=== PATIENT | female | born 1995 ===

== ENCOUNTER 2019-02-23 07:03 | Inpatient (IN) ==
[2019-02-23] MEDS ORDERED: ONDANSETRON 4 MG/2 ML VIAL IV PRN ×3 (07:18→12:16)
[2019-02-23] MEDS ORDERED: LACTATED RINGERS 1,000 ML IV ONE (07:18)
[2019-02-23] MEDS ORDERED: ePHEDrine 50 MG/ML AMP IV PRN (07:23)
[2019-02-23] MEDS ORDERED: hydrOXYzine HCL 25 MG/1 ML VIAL IM PRN ×2 (07:23→12:16)
[2019-02-23] MEDS ORDERED: CITRIC ACID/SODIUM CITRATE 30 ML UDCUP PO ONE (07:23)
[2019-02-23] MEDS ORDERED: FAMOTIDINE 20 MG/2 ML VIAL IV ONE (07:23)
[2019-02-23] MEDS ORDERED: PROMETHAZINE 25 MG/1 ML VIAL IM ONE ×2 (07:23→14:25)
[2019-02-23] MEDS ORDERED: diphenhydrAMINE 50 MG/1 ML VIAL IV PRN ×3 (07:23→12:16)
[2019-02-23] MEDS ORDERED: OXYTOCIN 10 UNIT/ML VIAL IM ONE (07:24)
[2019-02-23] MEDS ORDERED: OXYTOCIN/LR 30 UNIT/1,000 ML BAG IV ONE (07:25)
[2019-02-23] MEDS ORDERED: ceFAZolin 3,000 MG in SYRINGE 1 EACH IV ONE (07:27)
[2019-02-23] MEDS ORDERED: LACTATED RINGERS 1,000 ML IV SCH ×2 (07:30→11:30)
[2019-02-23 07:49] LABS: Basophils % 0.3 % (0.0-0.8); Eosinophils # 0.2 10*3/uL (0.0-0.87); Eosinophils % 2.1 % (0.00-10.9); Hematocrit 33.4 VOL% (35.7-47.0); Immature Granulocytes % 0.5 %; Immature Granulocytes Absolute 0.05 #; Lymphocytes # 1.9 10*3/uL (1.4-4.0); Mean Corpuscular HGB Conc 32.9 GM/DL (32-36); Mean Corpuscular Volume 88.1 FL (87-102); Mean Platelet Volume 11.2 FL (9.6-12.0); Monocytes % 8.2 % (1.7-12.7); Neutrophils % 67.9 % (38.7-73.9); Platelet Count 243 T/CUMM (130-400); Red Blood Count 3.79 MC/CUMM (3.8-5.5); Red Cell Distribution Width 13.3 % (9.3-17.3); White Blood Count 9.1 T/CUMM (4-12)
[2019-02-23 08:39] LABS: Alanine Aminotransferase 13 U/L (13-56); Albumin 2.8 G/DL (3.4-5.0); Alkaline Phosphatase 225 U/L (45-117); Aspartate Amino Transferase 14 U/L (0-37); Bilirubin,Total < 0.39 MG/DL (0.2-1.0); Blood Urea Nitrogen 9 MG/DL (7-18); Calcium 8.7 MG/DL (8.5-10.1); Glucose 74 MG/DL (74-106); Osmolality,Calculated 274.5 MOS/KG (273-304); Total Protein 7.6 G/DL (6.4-8.3); Uric Acid 4.9 MG/DL (2.6-6.0)
[2019-02-23] MEDS ORDERED: MORPHINE 10 MG/10 ML VIAL ONE (10:03)
[2019-02-23] MEDS ORDERED: BUPIVACAINE SPINAL 0.75% 2 ML AMP SPINAL ONE (10:03)
[2019-02-23] MEDS ORDERED: PHENYLEPHRINE 1 MG/10 ML SYRINGE IV ONE (10:03)
[2019-02-23 11:07] LABS: Cord Arterial Blood HCO3 19.6 MMOL/L
[2019-02-23 11:10] LABS: Cord Venous Blood HCO3 20.7 MMOL/L; Cord Venous Blood PCO2 47.9 MMHG
[2019-02-23 11:13] LABS: Apearance,Urine CLEAR (Clear); Bilirubin,Urine Negative (Negative); Blood, Urine Small mg/dL (Negative); Glucose,Urine (UA) Negative (Negative); Ketones,Urine Negative (Negative); Mucus,Urine Occasional /LPF (Occasional); Nitrite,Urine Negative (Negative); Protein,Urine Negative; RBC,Urine 1 /HPF (0-4); Squamous Epithelial Cell,Urine Occasional /HPF (0-10); Urine Color Yellow (Yellow); Urine Urobilinogen < 2.0 EU/DL (0.2-1.0); WBC,Urine 1 /HPF (0-6)
[2019-02-23] MEDS ORDERED: SIMETHICONE CHEW 80 MG TABLET PO PRN (11:17)
[2019-02-23] MEDS ORDERED: ACETAMINOPHEN 325 MG TABLET PO PRN (11:17)
[2019-02-23] MEDS ORDERED: OXYTOCIN/LR 20 UNIT/1,000 ML BAG IV ONE (11:17)
[2019-02-23] MEDS ORDERED: RHO(D) IMMUNE GLOBULIN 300 MCG SYRINGE IM ONE (11:17)
[2019-02-23] MEDS ORDERED: fentaNYL 100 MCG/2 ML VIAL ONE (11:48)
[2019-02-23] MEDS ORDERED: ePHEDrine 50 MG/ML AMP ONE (11:48)
[2019-02-23] MEDS ORDERED: HYDROmorphone 2 MG/1 ML VIAL IV PRN (12:16)
[2019-02-23 14:03] LABS: Hematocrit 28.3 VOL% (35.7-47.0); Hemoglobin 9.1 GM/DL (12.0-16.0)
[2019-02-23] MEDS: ceFAZolin 1,000 MG in SYRINGE 1 EACH IV SCH (18:45)
[2019-02-23 19:03] LABS: Basophils % 0.1 % (0.0-0.8); Eosinophils % 0.1 % (0.00-10.9); Hemoglobin 7.9 GM/DL (12.0-16.0); Immature Granulocytes % 0.5 %; Immature Granulocytes Absolute 0.06 #; Lymphocytes # 0.6 10*3/uL (1.4-4.0); Lymphocytes % 5.2 % (21.3-54.2); Mean Corpuscular HGB Conc 32.9 GM/DL (32-36); Mean Corpuscular Volume 89.2 FL (87-102); Mean Platelet Volume 10.9 FL (9.6-12.0); Monocytes % 4.2 % (1.7-12.7); Neutrophils % 89.9 % (38.7-73.9); Platelet Count 195 T/CUMM (130-400); Red Blood Count 2.69 MC/CUMM (3.8-5.5); Red Cell Distribution Width 13.4 % (9.3-17.3); White Blood Count 12.2 T/CUMM (4-12)
[2019-02-23] MEDS: DOCUSATE SODIUM 100 MG CAPSULE PO SCH (20:42)
[2019-02-24] MEDS: ceFAZolin 1,000 MG in SYRINGE 1 EACH IV SCH (03:48)
[2019-02-24 05:54] LABS: Basophils % 0.2 % (0.0-0.8); Eosinophils % 0.4 % (0.00-10.9); Hematocrit 23.3 VOL% (35.7-47.0); Hemoglobin 7.5 GM/DL (12.0-16.0); Immature Granulocytes % 0.5 %; Immature Granulocytes Absolute 0.05 #; Lymphocytes # 1.6 10*3/uL (1.4-4.0); Lymphocytes % 17.4 % (21.3-54.2); Mean Corpuscular HGB Conc 32.2 GM/DL (32-36); Mean Corpuscular Volume 90.3 FL (87-102); Mean Platelet Volume 11.2 FL (9.6-12.0); Monocytes % 10.7 % (1.7-12.7); Neutrophils % 70.8 % (38.7-73.9); Platelet Count 181 T/CUMM (130-400); Red Blood Count 2.58 MC/CUMM (3.8-5.5); Red Cell Distribution Width 13.5 % (9.3-17.3); White Blood Count 9.3 T/CUMM (4-12)
[2019-02-24] MEDS: METOCLOPRAMIDE 10 MG TABLET PO SCH ×3 (07:45→23:36)
[2019-02-24] MEDS: FERROUS SULFATE 325 MG TABLET PO SCH ×3 (10:15→20:44)
[2019-02-24] MEDS: MULTIVITAMIN (PRENATAL) TABLET PO SCH (10:15)
[2019-02-24] MEDS: DOCUSATE SODIUM 100 MG CAPSULE PO SCH ×2 (10:15→20:45)
[2019-02-24] MEDS: IBUPROFEN 800 MG TABLET PO PRN (12:18)
[2019-02-24] MEDS: MAGNESIUM HYDROXIDE SUSP 30 ML UDCUP PO PRN (20:45)
[2019-02-25] MEDS: IBUPROFEN 800 MG TABLET PO PRN (03:16)
[2019-02-25 04:28] LABS: Hematocrit 20.4 VOL% (35.7-47.0); Hemoglobin 6.7 GM/DL (12.0-16.0)
[2019-02-25] MEDS ORDERED: SODIUM CHLORIDE 0.9% 1,000 ML IV PRN (08:01)
[2019-02-25] MEDS: METOCLOPRAMIDE 10 MG TABLET PO SCH (08:07)
[2019-02-25] MEDS: MAGNESIUM HYDROXIDE SUSP 30 ML UDCUP PO PRN (08:07)
[2019-02-25] MEDS: DOCUSATE SODIUM 100 MG CAPSULE PO SCH (08:08)
[2019-02-25] MEDS: MULTIVITAMIN (PRENATAL) TABLET PO SCH (08:08)
[2019-02-25] MEDS: FERROUS SULFATE 325 MG TABLET PO SCH (08:08)
[2019-02-25 16:36] LABS: Hemoglobin 9.5 GM/DL (12.0-16.0)
[2019-02-25 16:46] VITALS: BP 125/79
== END 2019-02-25 18:05 | disposition home or self-care (01) | DRG 787 ==
LOC: N.LD 07:03 → N.OB 15:08
PROVIDERS: ADMIT Obstetrics & Gynecology; ATTEND Obstetrics & Gynecology
PROC: LDCSECT (ICD-10-PCS; 2019-02-23 09:30)

== ENCOUNTER 2022-09-26 10:03 | Inpatient (IN) ==
[2022-09-26] MEDS ORDERED: OXYTOCIN/LR 30 UNIT/1,000 ML BAG IV ONE (10:10)
[2022-09-26] MEDS ORDERED: OXYTOCIN/LR 20 UNIT/1,000 ML BAG IV ONE ×2 (10:10→15:52)
[2022-09-26] MEDS ORDERED: CARBOPROST TROMETHAMINE 250 MCG/ML AMP IM PRN (10:10)
[2022-09-26] MEDS ORDERED: OXYTOCIN 10 UNIT/ML VIAL IM ONE (10:10)
[2022-09-26] MEDS ORDERED: FAMOTIDINE 20 MG/2 ML VIAL IV ONE (10:10)
[2022-09-26] MEDS ORDERED: ceFAZolin 3,000 MG in SYRINGE 1 EACH IV ONE (10:10)
[2022-09-26] MEDS ORDERED: CITRIC ACID/SODIUM CITRATE 30 ML UDCUP PO ONE (10:10)
[2022-09-26] MEDS ORDERED: METHYLERGONOVINE 0.2 MG/1 ML AMP IM PRN (10:10)
[2022-09-26] MEDS ORDERED: TRANEXAMIC ACID 1,000 MG in SODIUM CHLORIDE 0.9% 100 ML IV PRN (10:10)
[2022-09-26] MEDS ORDERED: miSOPROStoL 200 MCG TABLET RECTAL PRN (10:10)
[2022-09-26 10:31] LABS: Basophils # 0.1 10*3/uL (0.0-0.2); Basophils % 0.7 % (0.0-0.8); Eosinophils # 0.3 10*3/uL (0.0-0.87); Eosinophils % 3.8 % (0.00-10.9); Hematocrit 34.2 VOL% (35.7-47.0); Hemoglobin 11.2 GM/DL (12.0-16.0); Immature Granulocytes % 0.7 %; Immature Granulocytes Absolute 0.05 #; Lymphocytes % 28.5 % (21.3-54.2); Mean Corpuscular HGB Conc 32.7 GM/DL (32-36); Mean Corpuscular Volume 88.8 FL (87-102); Mean Platelet Volume 11.1 FL (9.6-12.0); Monocytes # 0.6 10*3/uL (0.11-0.8); Monocytes % 7.9 % (1.7-12.7); Neutrophils % 58.4 % (38.7-73.9); Platelet Count 248 T/CUMM (130-400); Red Blood Count 3.85 MC/CUMM (3.8-5.5); Red Cell Distribution Width 12.9 % (9.3-17.3); White Blood Count 7.1 T/CUMM (4-12)
[2022-09-26] MEDS: LACTATED RINGERS 1,000 ML IV SCH ×2 (10:35→12:11)
[2022-09-26 10:48] LABS: Alanine Aminotransferase 12 U/L (13-56); Albumin 2.8 G/DL (3.4-5.0); Alkaline Phosphatase 184 U/L (45-117); Aspartate Amino Transferase 10 U/L (0-37); Bilirubin,Total < 0.39 MG/DL (0.20-1.00); Blood Urea Nitrogen 9 MG/DL (7-18); Calcium 8.7 MG/DL (8.5-10.1); Carbon Dioxide 21 MMOL/L (21-32); Chloride 108 MMOL/L (98-107); Glucose 78 MG/DL (74-106); Osmolality,Calculated 272.7 MOS/KG (273-304); Sodium 138 MMOL/L (136-145); Total Protein 7.8 G/DL (6.4-8.2)
[2022-09-26] MEDS ORDERED: buprenorphine HCL 0.3 MG/ML VIAL ONE (13:41)
[2022-09-26] MEDS ORDERED: ONDANSETRON 4 MG/2 ML VIAL ONE ×2 (13:41→14:23)
[2022-09-26] MEDS ORDERED: BUPIVACAINE SPINAL 0.75% 2 ML AMP SPINAL ONE (13:42)
[2022-09-26] MEDS ORDERED: KETOROLAC 30 MG/1 ML VIAL ONE (14:23)
[2022-09-26] MEDS ORDERED: ACETAMINOPHEN INJ 1,000 MG/100 ML VIAL IV ONE (14:23)
[2022-09-26] MEDS ORDERED: PHENYLEPHRINE 1 MG/10 ML SYRINGE IV ONE (14:53)
[2022-09-26 14:57] LABS: Cord Arterial Blood HCO3 20.3 MMOL/L
[2022-09-26 15:00] LABS: Cord Venous Blood HCO3 21.5 MMOL/L; Cord Venous Blood PCO2 50.6 MMHG; Cord Venous Blood PO2 24.8
[2022-09-26 15:03] LABS: RBC,Urine 1 /HPF (0-4); Squamous Epithelial Cell,Urine Occasional /HPF (0-10)
[2022-09-26 15:04] LABS: Bilirubin,Urine Negative (Negative); Blood, Urine Trace mg/dL (Negative); Glucose,Urine (UA) Negative (Negative); Ketones,Urine Negative (Negative); Nitrite,Urine Negative (Negative); Protein,Urine Negative (Negative); Urine Appearance Clear (Clear); Urine Color Yellow (Yellow); Urine Urobilinogen 0.2 eU/dL (<2.0)
[2022-09-26] MEDS ORDERED: GLYCOPYRROLATE 0.4 MG/2 ML VIAL ONE (15:08)
[2022-09-26] MEDS ORDERED: RHO(D) IMMUNE GLOBULIN 300 MCG SYRINGE IM ONE (15:52)
[2022-09-26] MEDS ORDERED: IBUPROFEN 800 MG TABLET PO PRN (15:52)
[2022-09-26] MEDS ORDERED: ACETAMINOPHEN 325 MG TABLET PO PRN (15:52)
[2022-09-26] MEDS ORDERED: ONDANSETRON 4 MG/2 ML VIAL IV PRN (15:52)
[2022-09-26] MEDS ORDERED: LACTATED RINGERS 1,000 ML IV SCH (16:00)
[2022-09-26 16:16] LABS: Barbiturates Screen,Urine Negative (Negative); Benzodiazepines Screen,Urine Negative (Negative); Cannabinoid Screen,Urine Negative (Negative); Opiate Screen,Urine Negative (Negative); Phencyclidine Screen,Urine Negative (Negative)
[2022-09-26] MEDS ORDERED: SODIUM CHLORIDE 0.9% 1,000 ML IV PRN ×2 (19:34→19:40)
[2022-09-26 19:47] LABS: Hematocrit 25.4 VOL% (35.7-47.0); Hemoglobin 8.2 GM/DL (12.0-16.0)
[2022-09-26] MEDS: KETOROLAC 30 MG/1 ML VIAL IV SCH (21:26)
[2022-09-26] MEDS: DOCUSATE SODIUM 100 MG CAPSULE PO SCH (21:30)
[2022-09-26] MEDS: ACETAMINOPHEN 500 MG TABLET PO SCH (21:30)
[2022-09-27] MEDS: KETOROLAC 30 MG/1 ML VIAL IV SCH ×2 (03:37→08:06)
[2022-09-27] MEDS: ACETAMINOPHEN 500 MG TABLET PO SCH (03:41)
[2022-09-27 04:54] LABS: Basophils % 0.2 % (0.0-0.8); Eosinophils % 0.1 % (0.00-10.9); Hematocrit 31.8 VOL% (35.7-47.0); Hemoglobin 10.6 GM/DL (12.0-16.0); Immature Granulocytes % 0.5 %; Immature Granulocytes Absolute 0.06 #; Lymphocytes # 1.5 10*3/uL (1.4-4.0); Mean Corpuscular HGB Conc 33.3 GM/DL (32-36); Mean Corpuscular Volume 88.1 FL (87-102); Monocytes # 1.2 10*3/uL (0.11-0.8); Monocytes % 8.9 % (1.7-12.7); Neutrophils % 79.3 % (38.7-73.9); Platelet Count 202 T/CUMM (130-400); Red Blood Count 3.61 MC/CUMM (3.8-5.5); Red Cell Distribution Width 14.2 % (9.3-17.3); White Blood Count 13.3 T/CUMM (4-12)
[2022-09-27] MEDS ORDERED: METOCLOPRAMIDE 10 MG TABLET PO PRN (08:00)
[2022-09-27] MEDS: MAGNESIUM HYDROXIDE SUSP 30 ML UDCUP PO PRN ×2 (08:04→22:33)
[2022-09-27] MEDS: METOCLOPRAMIDE 10 MG TABLET PO SCH ×2 (08:04→16:56)
[2022-09-27] MEDS: MULTIVITAMIN (PRENATAL) TABLET PO SCH (08:04)
[2022-09-27] MEDS: SIMETHICONE CHEW 80 MG TABLET PO PRN ×2 (08:04→16:56)
[2022-09-27] MEDS: DOCUSATE SODIUM 100 MG CAPSULE PO SCH ×2 (08:05→22:33)
[2022-09-27] MEDS ORDERED: BISACODYL 10 MG SUPP RECTAL PRN (17:06)
[2022-09-28] MEDS: METOCLOPRAMIDE 10 MG TABLET PO SCH ×2 (01:06→08:07)
[2022-09-28] MEDS: MAGNESIUM HYDROXIDE SUSP 30 ML UDCUP PO PRN (08:06)
[2022-09-28] MEDS: MULTIVITAMIN (PRENATAL) TABLET PO SCH (08:06)
[2022-09-28] MEDS: SIMETHICONE CHEW 80 MG TABLET PO PRN (08:07)
[2022-09-28 08:37] VITALS: BP 121/73
[2022-09-28] MEDS: DOCUSATE SODIUM 100 MG CAPSULE PO SCH (08:45)
== END 2022-09-28 12:45 | disposition home or self-care (01) | DRG 540 ==
LOC: N.LD 10:03 → N.OB 09-27 07:05
PROVIDERS: ADMIT Obstetrics & Gynecology; ATTEND Obstetrics & Gynecology
PROC: LDCSECT (ICD-10-PCS; 2022-09-26 10:00)